=== PATIENT | female | born 1970 | race Hispanic/Latino ===

== ENCOUNTER 2020-09-30 13:35 | Inpatient (IN) | payer OTHER ==
[~2020-09-30] VITALS: Ht 162.6 cm; Wt 72.8 kg
[2020-09-30] MEDS: BUDESONIDE 0.5 MG/2 ML INH IH SCH (07:00)
[2020-09-30 13:37] VITALS: BP 130/70
[2020-09-30 14:12] LABS: ABG BASE EXCESS 3.9 mmol/L (-2.0-3.0); ABG HCO3 27.7 mmol/L (21.0-28.0); ABG OXYGEN SATURATION 95.3 % (95.0-99.0); ABG PCO2 39 mmHg (32-45)
[2020-09-30 14:14] LABS: BASOPHILS % (AUTO) 0.1 % (0.0-5.0); LYMPHOCYTES % (AUTO) 9.5 % (21.0-51.0); MEAN CORPUSCULAR HEMOGLOBIN 22.7 pg (27.0-33.0); MONOCYTES % (AUTO) 1.2 % (3.0-13.0); NEUTROPHILS % (AUTO) 88.7 % (40.0-77.0); PLATELET COUNT (AUTO) 458 K/uL (130-400); RED BLOOD CELL COUNT(AUTO) 5.34 MIL/uL (4.00-5.50); RED CELL DISTRIBUTION WIDTH 17.6 % (11.0-15.5); WHITE BLOOD COUNT (AUTO) 7.4 K/uL (4.8-10.8)
[2020-09-30 14:19] LABS: CREATININE 0.5 mg/dL (0.5-1.5); POTASSIUM 3.6 mmol/L (3.5-5.1)
[2020-09-30 14:23] LABS: ALBUMIN 2.4 g/dL (3.5-5.0); BILIRUBIN,DIRECT 0.1 mg/dL (0.0-0.3); BILIRUBIN,TOTAL 0.3 mg/dL (0.2-1.0); CRP QUANTITATIVE 94.9 mg/L (0.00-9.0); TOTAL PROTEIN, SERUM 7.6 g/dL (6.0-8.3)
[2020-09-30] MEDS ORDERED: AZITHROMYCIN 250 MG TABLET PO ONE (15:00)
[2020-09-30] MEDS ORDERED: DEXAMETHASONE SOD PHOSPHATE 4 MG/ML 1ML VIAL IVP ONE (15:00)
[2020-09-30] MEDS ORDERED: CEFTRIAXONE 1G VIAL IVP ONE (15:00)
[2020-09-30 15:20] LABS: ERYTHROCYTE SEDIMENTATION RATE 75 MM/HR (0-30)
[2020-09-30] MEDS ORDERED: ACETAMINOPHEN 325 MG TAB PO PRN ×2 (15:30)
[2020-09-30] MEDS ORDERED: ONDANSETRON 4MG INJ IV PRN (15:30)
[2020-09-30] MEDS ORDERED: PHARMACY COMMUNICATION MISC SCH (15:30)
[2020-09-30 15:41] VITALS: BP 134/78
[2020-09-30] MEDS: ALBUTEROL INHALER 90MCG/INH IH SCH ×2 (16:20→21:39)
[2020-09-30] MEDS: INSULIN HUMULIN R 100 UNIT/ML 3ML SQ SCH ×2 (16:20→21:39)
[2020-09-30] MEDS: CEFEPIME HCL 2 GM VIAL IVP SCH (16:20)
[2020-09-30] MEDS: GUAIFENESIN-DM 200/20 MG 10 ML PO SCH ×2 (16:20→21:39)
[2020-09-30 16:24] LABS: HEMOGLOBIN A1C 13.8 % (4.0-6.0)
[2020-09-30] MEDS ORDERED: PANTOPRAZOLE 40 MG TAB DR PO SCH (16:30)
[2020-09-30] MEDS ORDERED: COMPOUND IV REFRIGERATED 1 EACH IVSOLN MISC PRN ×2 (17:00)
[2020-09-30] MEDS ORDERED: REMDESIVIR (EUA) 520 200 MG in 0.9% NACL 250ML 250 ML IV ONE ×4 (17:00)
[2020-09-30 18:54] VITALS: BP 121/70
[2020-09-30 19:20] VITALS: BP 136/64
[2020-09-30] MEDS: DOXYCYCLINE HYCLATE 100 MG TABLET PO SCH (21:39)
[2020-09-30] MEDS: INSULIN GLARGINE 100 UNITS/ML 10 ML VIAL SQ SCH (21:39)
[2020-10-01] MEDS: ALBUTEROL INHALER 90MCG/INH IH SCH ×4 (03:30→22:21)
[2020-10-01 04:26] VITALS: BP 141/80
[2020-10-01] MEDS: BUDESONIDE 0.5 MG/2 ML INH IH SCH ×2 (06:00→18:00)
[2020-10-01] MEDS: CEFEPIME HCL 2 GM VIAL IVP SCH ×2 (07:00→15:34)
[2020-10-01] MEDS: GUAIFENESIN-DM 200/20 MG 10 ML PO SCH ×4 (07:00→22:21)
[2020-10-01] MEDS: REMDESIVIR LABS MISC SCH ×2 (07:23→07:24)
[2020-10-01] MEDS: INSULIN HUMULIN R 100 UNIT/ML 3ML SQ SCH ×4 (07:30→21:00)
[2020-10-01 07:45] LABS: ALBUMIN 2.6 g/dL (3.5-5.0); BILIRUBIN,TOTAL 0.2 mg/dL (0.2-1.0); CREATININE 0.5 mg/dL (0.5-1.5); CRP QUANTITATIVE 59.7 mg/L (0.00-9.0); POTASSIUM 3.4 mmol/L (3.5-5.1)
[2020-10-01 08:00] VITALS: BP 145/94
[2020-10-01] MEDS: PANTOPRAZOLE 40 MG TAB DR PO SCH (08:47)
[2020-10-01] MEDS: DOXYCYCLINE HYCLATE 100 MG TABLET PO SCH ×2 (08:47→22:20)
[2020-10-01] MEDS: ENOXAPARIN SODIUM 40 MG/0.4 ML SYRINGE SQ SCH ×2 (08:48→22:21)
[2020-10-01] MEDS ORDERED: DEXAMETHASONE SOD PHOSPHATE 4 MG/ML 1ML VIAL IVP SCH (09:00)
[2020-10-01] MEDS ORDERED: 0.9%NACL 50ML 50 ML IV ONE (15:22)
[2020-10-01] MEDS: 1/2 NS 1000ML 1,000 ML IV SCH (15:34)
[2020-10-01 15:35] VITALS: BP 145/74
[2020-10-01] MEDS: REMDESIVIR (EUA) 520 100 MG in 0.9% NACL 250ML 250 ML IV SCH (16:22)
[2020-10-01] MEDS ORDERED: REMDESIVIR (EUA) 520 100 MG in 0.9% NACL 250ML 250 ML IV SCH (17:00)
[2020-10-01 20:30] VITALS: BP 130/55
[2020-10-01] MEDS: INSULIN GLARGINE 100 UNITS/ML 10 ML VIAL SQ SCH (21:00)
[2020-10-01] MEDS: SOLU-MEDROL 40MG VIAL IVP SCH (22:20)
[2020-10-01 23:30] VITALS: BP 136/62
[2020-10-02 03:30] VITALS: BP 136/56
[2020-10-02] MEDS: ALBUTEROL INHALER 90MCG/INH IH SCH ×4 (04:21→22:06)
[2020-10-02] MEDS: GUAIFENESIN-DM 200/20 MG 10 ML PO SCH ×4 (04:22→22:06)
[2020-10-02] MEDS: CEFEPIME HCL 2 GM VIAL IVP SCH (04:22)
[2020-10-02] MEDS: REMDESIVIR LABS MISC SCH ×2 (06:00)
[2020-10-02] MEDS: BUDESONIDE 0.5 MG/2 ML INH IH SCH ×2 (06:00→17:44)
[2020-10-02 06:49] LABS: ALBUMIN 2.5 g/dL (3.5-5.0); BILIRUBIN,TOTAL 0.3 mg/dL (0.2-1.0); CREATININE 0.5 mg/dL (0.5-1.5); CRP QUANTITATIVE 53.8 mg/L (0.00-9.0); POTASSIUM 3.9 mmol/L (3.5-5.1); TOTAL PROTEIN, SERUM 7.4 g/dL (6.0-8.3)
[2020-10-02] MEDS: INSULIN HUMULIN R 100 UNIT/ML 3ML SQ SCH ×4 (07:30→22:05)
[2020-10-02 08:03] VITALS: BP 111/40
[2020-10-02] MEDS: DOXYCYCLINE HYCLATE 100 MG TABLET PO SCH (08:07)
[2020-10-02] MEDS: ENOXAPARIN SODIUM 40 MG/0.4 ML SYRINGE SQ SCH ×2 (08:07→22:06)
[2020-10-02] MEDS: SOLU-MEDROL 40MG VIAL IVP SCH ×2 (08:07→22:05)
[2020-10-02] MEDS: PANTOPRAZOLE 40 MG TAB DR PO SCH (08:07)
[2020-10-02] MEDS: 1/2 NS 1000ML 1,000 ML IV SCH (11:16)
[2020-10-02 11:35] VITALS: BP 111/50
[2020-10-02] MEDS: REMDESIVIR (EUA) 520 100 MG in 0.9% NACL 250ML 250 ML IV SCH (17:35)
[2020-10-02 17:47] VITALS: BP 132/67
[2020-10-02 21:30] VITALS: BP 125/63
[2020-10-02] MEDS: INSULIN GLARGINE 100 UNITS/ML 10 ML VIAL SQ SCH (22:05)
[2020-10-03] VITALS (9 sets, daily range): BP systolic 101–145; BP diastolic 55–74
[2020-10-03] MEDS: ALBUTEROL INHALER 90MCG/INH IH SCH ×2 (03:56→22:41)
[2020-10-03] MEDS: GUAIFENESIN-DM 200/20 MG 10 ML PO SCH ×2 (03:57→22:37)
[2020-10-03 05:56] LABS: ALBUMIN 2.4 g/dL (3.5-5.0); BILIRUBIN,TOTAL 0.3 mg/dL (0.2-1.0); CREATININE 0.4 mg/dL (0.5-1.5); CRP QUANTITATIVE 35.2 mg/L (0.00-9.0); POTASSIUM 4.2 mmol/L (3.5-5.1); TOTAL PROTEIN, SERUM 7.3 g/dL (6.0-8.3)
[2020-10-03] MEDS: REMDESIVIR LABS MISC SCH ×2 (06:00)
[2020-10-03] MEDS: BUDESONIDE 0.5 MG/2 ML INH IH SCH ×2 (06:00→18:00)
[2020-10-03 06:39] LABS: BASOPHILS % (AUTO) 0.2 % (0.0-5.0); HEMATOCRIT 40.8 % (36-48); LYMPHOCYTES % (AUTO) 17.6 % (21.0-51.0); MEAN CORPUSCULAR HEMOGLOBIN 22.1 pg (27.0-33.0); MEAN CORPUSCULAR HGB CONC 30.1 g/dL (32.0-36.0); MEAN CORPUSCULAR VOLUME 73.2 fL (79-99); MONOCYTES % (AUTO) 3.7 % (3.0-13.0); NEUTROPHILS % (AUTO) 78.3 % (40.0-77.0); PLATELET COUNT (AUTO) 486 K/uL (130-400); RED BLOOD CELL COUNT(AUTO) 5.57 MIL/uL (4.00-5.50); WHITE BLOOD COUNT (AUTO) 4.8 K/uL (4.8-10.8)
[2020-10-03] MEDS: SOLU-MEDROL 40MG VIAL IVP SCH ×2 (09:39→22:43)
[2020-10-03] MEDS: PANTOPRAZOLE 40 MG TAB DR PO SCH (09:39)
[2020-10-03] MEDS: ENOXAPARIN SODIUM 40 MG/0.4 ML SYRINGE SQ SCH ×2 (09:43→22:39)
[2020-10-03] MEDS ORDERED: 0.9%NACL 50ML 50 ML IV ONE (15:49)
[2020-10-03] MEDS ORDERED: DOXYCYCLINE 100MG IVPB (VIAL) IVPB SCH (16:00)
[2020-10-03] MEDS ORDERED: 0.9%NACL 100ML 100 ML ONE (16:27)
[2020-10-03] MEDS: CEFEPIME HCL 2 GM VIAL IVP SCH (16:34)
[2020-10-03] MEDS: REMDESIVIR (EUA) 520 100 MG in 0.9% NACL 250ML 250 ML IV SCH (17:08)
[2020-10-03] MEDS: INSULIN HUMULIN R 100 UNIT/ML 3ML SQ SCH (19:43)
[2020-10-03] MEDS: DOXYCYCLINE 100MG+NS 250ML IV SCH (19:43)
[2020-10-03] MEDS: 0.9% NACL 250ML IVPB SCH (19:51)
[2020-10-03] MEDS: INSULIN GLARGINE 100 UNITS/ML 10 ML VIAL SQ SCH (22:40)
[2020-10-03] MEDS ORDERED: BENZ-70 PO (23:32)
[2020-10-03] MEDS ORDERED: ASCO500V11 IM (23:32)
[2020-10-03] MEDS ORDERED: DEXA1TAB PO (23:32)
[2020-10-03] MEDS ORDERED: BUDE0.5A3 IH (23:32)
[2020-10-04 03:51] VITALS: BP 119/65
[2020-10-04] MEDS: CEFEPIME HCL 2 GM VIAL IVP SCH ×2 (04:54→15:56)
[2020-10-04] MEDS: GUAIFENESIN-DM 200/20 MG 10 ML PO SCH ×4 (04:54→21:30)
[2020-10-04] MEDS: DOXYCYCLINE 100MG+NS 250ML IV SCH ×2 (04:54→15:56)
[2020-10-04 04:57] LABS: BASOPHILS % (AUTO) 0.1 % (0.0-5.0); HEMATOCRIT 40.1 % (36-48); MEAN CORPUSCULAR HEMOGLOBIN 22.2 pg (27.0-33.0); MEAN CORPUSCULAR HGB CONC 30.2 g/dL (32.0-36.0); MEAN CORPUSCULAR VOLUME 73.6 fL (79-99); NEUTROPHILS % (AUTO) 88.5 % (40.0-77.0); PLATELET COUNT (AUTO) 536 K/uL (130-400); RED BLOOD CELL COUNT(AUTO) 5.45 MIL/uL (4.00-5.50); RED CELL DISTRIBUTION WIDTH 18.1 % (11.0-15.5); WHITE BLOOD COUNT (AUTO) 7.6 K/uL (4.8-10.8)
[2020-10-04] MEDS: ALBUTEROL INHALER 90MCG/INH IH SCH ×4 (05:02→21:07)
[2020-10-04 05:18] LABS: ALBUMIN 2.3 g/dL (3.5-5.0); BILIRUBIN,TOTAL 0.3 mg/dL (0.2-1.0); CREATININE 0.4 mg/dL (0.5-1.5); CRP QUANTITATIVE 20.6 mg/L (0.00-9.0); TOTAL PROTEIN, SERUM 6.9 g/dL (6.0-8.3)
[2020-10-04] MEDS: BUDESONIDE 0.5 MG/2 ML INH IH SCH ×2 (06:00→18:00)
[2020-10-04] MEDS: REMDESIVIR LABS MISC SCH ×2 (06:00)
[2020-10-04] MEDS: 0.9% NACL 250ML IVPB SCH ×2 (06:34→15:56)
[2020-10-04] MEDS: INSULIN HUMULIN R 100 UNIT/ML 3ML SQ SCH ×4 (06:37→21:05)
[2020-10-04 07:40] VITALS: BP 119/59
[2020-10-04] MEDS: SOLU-MEDROL 40MG VIAL IVP SCH ×2 (08:06→21:00)
[2020-10-04] MEDS: PANTOPRAZOLE 40 MG TAB DR PO SCH (08:06)
[2020-10-04] MEDS: ENOXAPARIN SODIUM 40 MG/0.4 ML SYRINGE SQ SCH ×2 (08:07→21:01)
[2020-10-04 11:55] VITALS: BP 136/70
[2020-10-04 16:10] VITALS: BP 106/65
[2020-10-04] MEDS: REMDESIVIR (EUA) 520 100 MG in 0.9% NACL 250ML 250 ML IV SCH (18:28)
[2020-10-04 20:05] VITALS: BP 124/58
[2020-10-04] MEDS: INSULIN GLARGINE 100 UNITS/ML 10 ML VIAL SQ SCH (21:04)
[2020-10-04 23:33] VITALS: BP 113/67
[2020-10-05] MEDS: GUAIFENESIN-DM 200/20 MG 10 ML PO SCH ×4 (03:30→21:04)
[2020-10-05 04:28] VITALS: BP 129/60
[2020-10-05] MEDS: DOXYCYCLINE 100MG+NS 250ML IV SCH ×2 (04:33→15:02)
[2020-10-05] MEDS: CEFEPIME HCL 2 GM VIAL IVP SCH ×2 (04:34→15:01)
[2020-10-05] MEDS: ALBUTEROL INHALER 90MCG/INH IH SCH ×4 (04:35→21:04)
[2020-10-05] MEDS: 0.9% NACL 250ML IVPB SCH ×2 (04:38→16:30)
[2020-10-05] MEDS: BUDESONIDE 0.5 MG/2 ML INH IH SCH ×2 (06:00→18:00)
[2020-10-05] MEDS: INSULIN HUMULIN R 100 UNIT/ML 3ML SQ SCH ×4 (06:46→20:49)
[2020-10-05] MEDS: SOLU-MEDROL 40MG VIAL IVP SCH ×2 (08:16→20:46)
[2020-10-05] MEDS: PANTOPRAZOLE 40 MG TAB DR PO SCH (08:16)
[2020-10-05] MEDS: ENOXAPARIN SODIUM 40 MG/0.4 ML SYRINGE SQ SCH ×2 (08:17→20:47)
[2020-10-05 08:42] VITALS: BP 123/71
[2020-10-05 11:37] VITALS: BP 99/53
[2020-10-05 16:33] VITALS: BP 134/69
[2020-10-05 20:01] VITALS: BP 118/58
[2020-10-05] MEDS: INSULIN GLARGINE 100 UNITS/ML 10 ML VIAL SQ SCH (20:50)
[2020-10-05 23:37] VITALS: BP 126/61
[2020-10-06] MEDS: GUAIFENESIN-DM 200/20 MG 10 ML PO SCH ×4 (03:30→21:09)
[2020-10-06] MEDS: ALBUTEROL INHALER 90MCG/INH IH SCH ×4 (04:02→21:09)
[2020-10-06] MEDS: CEFEPIME HCL 2 GM VIAL IVP SCH ×2 (04:02→16:23)
[2020-10-06] MEDS: DOXYCYCLINE 100MG+NS 250ML IV SCH ×2 (04:03→16:24)
[2020-10-06] MEDS: 0.9% NACL 250ML IVPB SCH ×2 (04:03→16:29)
[2020-10-06 04:30] VITALS: BP 105/66
[2020-10-06] MEDS: INSULIN HUMULIN R 100 UNIT/ML 3ML SQ SCH ×4 (06:22→21:03)
[2020-10-06 08:15] VITALS: BP 120/86
[2020-10-06 08:42] LABS: EOSINOPHILS % (AUTO) 1.3 % (0.0-8.0); HEMATOCRIT 40.6 % (36-48); MEAN CORPUSCULAR HEMOGLOBIN 22.4 pg (27.0-33.0); MEAN CORPUSCULAR HGB CONC 30.8 g/dL (32.0-36.0); MEAN CORPUSCULAR VOLUME 72.9 fL (79-99); MONOCYTES % (AUTO) 5.6 % (3.0-13.0); NEUTROPHILS % (AUTO) 71.8 % (40.0-77.0); PLATELET COUNT (AUTO) 538 K/uL (130-400); RED BLOOD CELL COUNT(AUTO) 5.57 MIL/uL (4.00-5.50); RED CELL DISTRIBUTION WIDTH 18.2 % (11.0-15.5); WHITE BLOOD COUNT (AUTO) 6.8 K/uL (4.8-10.8)
[2020-10-06 08:45] LABS: CREATININE 0.5 mg/dL (0.5-1.5); POTASSIUM 3.9 mmol/L (3.5-5.1)
[2020-10-06 08:52] LABS: ALBUMIN 2.5 g/dL (3.5-5.0); BILIRUBIN,TOTAL 0.4 mg/dL (0.2-1.0); CRP QUANTITATIVE 9.7 mg/L (0.00-9.0); TOTAL PROTEIN, SERUM 6.8 g/dL (6.0-8.3)
[2020-10-06] MEDS: PANTOPRAZOLE 40 MG TAB DR PO SCH (08:56)
[2020-10-06] MEDS: DEXAMETHASONE 4 MG TAB PO SCH (08:57)
[2020-10-06] MEDS: ENOXAPARIN SODIUM 40 MG/0.4 ML SYRINGE SQ SCH ×2 (09:01→21:01)
[2020-10-06 10:55] VITALS: BP 100/50
[2020-10-06 16:29] VITALS: BP 127/66
[2020-10-06 19:56] VITALS: BP 112/59
[2020-10-06] MEDS: INSULIN GLARGINE 100 UNITS/ML 10 ML VIAL SQ SCH (21:02)
[2020-10-06 23:52] VITALS: BP 130/66
[2020-10-07] MEDS: GUAIFENESIN-DM 200/20 MG 10 ML PO SCH ×2 (03:30→09:05)
[2020-10-07 03:54] VITALS: BP 111/56
[2020-10-07] MEDS: ALBUTEROL INHALER 90MCG/INH IH SCH ×3 (03:54→17:20)
[2020-10-07] MEDS: DOXYCYCLINE 100MG+NS 250ML IV SCH (03:55)
[2020-10-07] MEDS: 0.9% NACL 250ML IVPB SCH (03:55)
[2020-10-07] MEDS: CEFEPIME HCL 2 GM VIAL IVP SCH ×2 (03:55→17:20)
[2020-10-07] MEDS: INSULIN HUMULIN R 100 UNIT/ML 3ML SQ SCH ×3 (06:37→17:19)
[2020-10-07 08:06] VITALS: BP 121/68
[2020-10-07] MEDS: DEXAMETHASONE 4 MG TAB PO SCH (09:01)
[2020-10-07] MEDS: PANTOPRAZOLE 40 MG TAB DR PO SCH (09:01)
[2020-10-07] MEDS: ENOXAPARIN SODIUM 40 MG/0.4 ML SYRINGE SQ SCH (09:02)
[2020-10-07 11:03] VITALS: BP 100/52
== END 2020-10-07 18:59 | DRG 177 ==
LOC: EDH 13:35 → EDHIP 13:36 → 4BH 10-03 21:46
PROVIDERS: ADMIT Internal Medicine; ATTEND Internal Medicine
PROC: XW033E5 Introduction of Remdesivir Anti-infective into Peripheral Vein, Percutaneous Approach, New Technology Group 5 (ICD-10-PCS; 2020-09-30)
PROC: 5A09357 Assistance with Respiratory Ventilation, Less than 24 Consecutive Hours, Continuous Positive Airway Pressure (ICD-10-PCS; principal; 2020-10-01)
PROC: 5A0935A Assistance with Respiratory Ventilation, Less than 24 Consecutive Hours, High Flow/Velocity Cannula (ICD-10-PCS; 2020-10-03)
DX: U07.1 COVID-19 (principal); J12.82 Pneumonia due to coronavirus disease 2019; J80 Acute respiratory distress syndrome; D68.59 Other primary thrombophilia; E11.65 Type 2 diabetes mellitus with hyperglycemia; E87.6 Hypokalemia; D72.810 Lymphocytopenia; Z98.891 History of uterine scar from previous surgery; Z91.14 Patient's other noncompliance with medication regimen
CPT/HCPCS: 36415; 36600; 71045; 71250; 80053; 82248; 82550; 82728; 82803; 82948; 83036; 83605; 83615; 84145; 84443; 84484; 85025; 85378; 85651; 86140; 87040; 87426; 87635; 87804; 93005; 93970; 94760; A4606; G0378; J0692; J0696; J1100; J1650; J1815; J2920; J3490; J7050; J8540; U0003